=== PATIENT | male | born 1990 | race Caucasian/White ===

== ENCOUNTER 2019-06-22 21:13 | Emergency (ER) | payer SELFPAY ==
[~2019-06-22] VITALS: Ht 170.2 cm; Wt 81.6 kg
[2019-06-22 21:20] VITALS: BP 131/90
--- NOTE | 2019-06-22 21:23 | NUR ---
TO LOBBY A/W BED AMBULATORY
[2019-06-22 22:27] VITALS: BP 133/87
--- NOTE | 2019-06-22 22:27 | NUR ---
PT TAKEN TO BED 7
--- NOTE | 2019-06-22 22:27 | NUR ---
29 Y/O M PRESENTS TO ED WITH C/O HEADACHE X5 HOURS. PT NOT CURRENTLY EXPERIENCING ANY PAIN AT THIS TIME. PT SELF MEDICATED WITH UNKNOWN MEDICATION AT HOME. PT DENIES VISION CHANGES OR DIZZINESS. PT HAS NOT TAKEN HTN MEDICATION FOR 6 MONTHS. FAMILY AT BEDSIDE. WILL CONTINUE TO MONITOR.
--- NOTE | 2019-06-22 22:42 | NUR ---
Dr. Dumont examining patient.
[2019-06-22] MEDS ORDERED: ACETAMINOPHEN EXTRA STRENGTH 500 MG TAB PO ONE (23:00)
--- NOTE | 2019-06-22 23:15 | NUR ---
PT RETURN FROM CT
[2019-06-23] MEDS ORDERED: KETOROLAC 30 MG/ML VIAL IM ONE (00:15)
== END 2019-06-23 00:33 | disposition home or self-care (01) ==
LOC: MED 21:13
DX: R51 Headache (principal); R11.0 Nausea
CPT/HCPCS: 70450; 99284; J1885